=== PATIENT | female | born 1995 | race Two or more races ===

== ENCOUNTER 2023-07-01 08:10 | Outpatient (AMB) | payer OTHER, SELFPAY ==
--- NOTE | 2023-07-01 08:21 | MHC.OFFWIV ---
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 She reports having acrylic nails done a couple of days ago, and yesterday her thumb became reddened and tender to touch. No fever, chills, or drainage from area. [facility] Social History Patient Tobacco Use Status: Never used Tobacco Review of Systems Const All systems reviewed & are unremarkable except as noted in HPI and below Physical Exam Vital Signs: Last Vital Signs Temp 98.0 F 07/01/23 08:25 Pulse 76 07/01/23 08:25 BP 108/72 07/01/23 08:25 Pulse Ox 98 07/01/23 08:25 Const General: cooperative and no acute distress Resp Effort & Inspection: normal respiratory effort Skin General skin exam: no rashes or lesions noted Extrem Other: Nailbed of left thumb slightly erythematous and tender to touch. No excessive warmth. No drainable area. Acrylic nail intact. Psych Appearance: grossly normal Mental Status: mental status grossly normal Speech and movement: Normal speech and movement present Assessment & Plan Assessment & Plan (1) Infected nailbed of finger: Code(s): L03.019 - Cellulitis of unspecified finger Qualifiers: Laterality: left Qualified Code(s): L03.012 - Cellulitis of left finger Plan: Mild infection of nailbed of left thumb. I encouraged patient to remove acrylic nail - she will make appointment for this today. At this time there is no drainable abscess. We discussed conservative measures at this time, particularly once acrylic nail is removed, including soaking in epsom salt/warm water, and use of topical antibiotic ointment such as bacitracin. If symptoms do not resolve with conservative treatment, or if she develops any worsening symptoms such as increase pain, redness, warmth, swelling, drainage or fever/chills, she should return to the clinic for further evaluation. She agrees to plan. Work note provided. Coding Level of Care Code Est Pt Level 4 (83253) Diagnoses Infection of nail bed of finger of left hand L03.012 Laterality: left
[2023-07-01 08:25] VITALS: BP 108/72; PULSE 76; TEMP 36.7; O2SAT 98
== END 2023-07-01 08:58 | disposition home or self-care (01) ==
PROVIDERS: Visit Provider Nurse Practitioner Family
DX: L03.012 Cellulitis of left finger (principal)
CPT/HCPCS: 99214

== ENCOUNTER 2024-12-12 08:34 | Outpatient (AMB) | payer OTHER, SELFPAY ==
--- OUTSIDE RECORDS SUMMARY | 2024-12-12 08:48 | XMS_ITS | Clinical Summary ---
Author Organization [address] Building Address [address] [place] [phone] Phone Care Team Providers Care Snowboard Instructor Name Role Phone Ankur Rivera MD Primary Care Provider [phone] Allergies No known active allergies Medications No known medications Active Problems Problem Noted Date Diagnosed Date Ureteral stone 11/18/2023 Sprain of lumbosacral joint or ligament 07/11/19 Overview (11/18/2023): Last Assessment & Plan: 08/14/18 Chiropractor referral Seen 06/2018 Sprain of sacroiliac ligament 07/10/2018 Candiduria 02/23/2018 Encounters Date Type Department Care Team Description 11/15/2024 Telephone Obstetrics & Gynecology - [address] [id number] Pretty Sheppard CNM 09/26/2024 1:15 PM EDT Office Visit Obstetrics and Gynecology - [address] [phone] Pretty Sheppard CNM Chlamydia contact, treated (Primary Dx); H/O bilateral salpingectomy from Last 3 Months Immunizations Immunization Administration Dates Next Due HPV 9-valent (Gardisil) 9yo to less than 46yo Tdap Tetanus diptheria acell ular pertussis (Boostrix; Adacel) 7yo and older 07/12/2018 Surgical History Surgery Date Site/Laterality Comments OTHER SURGICAL HISTORY 04/1998 PROCEDURE: HISTORICAL CLEFT LIP/PALATE REPAIR OTHER SURGICAL HISTORY 2014 PROCEDURE: BONE REPLACEMENT GRAFT; COMMENT: r/t cleft lip/palate OTHER SURGICAL HISTORY 09/2017 PROCEDURE: ---- OTHER ----; COMMENT: pt states jaw surgery r/t cleft lip / palate OTHER SURGICAL HISTORY 03/2019 PROCEDURE: BONE REPLACEMENT GRAFT; COM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; COMMENT: had surgery at 4 months in [place]; at 18 yo had a bone graft; and top jaw surgery in 10/2017 Ureteral stone 10/19/2018 DX:Ureteral ston e Family History Medical History Relation Name Comments No Known Problems Brother No Known Problems Father No Known Problems Mother Breast cancer Neg Hx Ovarian cancer Neg Hx Relation Name Status Comments Brother Alive Father Alive Mother Alive Social History Tobacco Use Types Packs/Day Years Used Date Smoking Tobacco: Never Smokeless Tobacco: Never Tobacco Cessation:Counseling Given: Not Answered Alcohol Use Standard Drinks/Week Comments Not Currently 0 (1 standard drink = 0.6 oz pur e alcohol) rarely Housing Instability Answer Date Recorde d Are you worried that in the next 2 months you may not have stable housing? No 07/06/2024 Food Access & Nutrition Answer Date Rec orded Do you have access to a vari ety of food including fruits and vegetables? Yes 07/06/2024 Access to Healthcare Answer Date Record ed Within the last 3 months, yoly herndon many times did you visit the emergency department for your medical care? 0 07/06/2024 Health Literacy Answer Date Recorded How often do you need to hav e someone help you when you read instructions, pamphlets, or other written material from your doctor or pharmacy? Never 07/06/2024 Caregiver: How often do you need to have someone help you when you read instructions, pamphlets, or other written material from your doctor or pharmacy? Not on file 07/06/2024 Financial Risk Answer Date Recorded How hard is it for you to pa y for the very basics like food, housing, medical care, and air conditioning / heating? Not very hard 07/06/2024 Transportation Answer Date Recorded Has the lack of transportati on kept you from meetings, work, or from getting things needed for daily living? No Has the lack of transportati on kept you from medical appointments or from getting medications? No 07/06/2024 Social Isolation Answer Date Recorded How often do you feel lonely or isolated from th ose around you? Never 07/06/2024 Food Risk Answer Date Recorded Within the past 12 months we worried whether our food would run out before we got money to buy more. Never true 07/06/2024 Within the past 12 months th e food we bought just didn't last and we didn't have money to get more. Never true 07/06/2024 Dependent Care Answer Date Recorded Do you need help finding or paying for care for your loved ones. For example, child support specialist or elderly care for an older adult? No 07/06/2024 Education Answer Date Recorded Do you think completing more education or training, like finishing a GED, going to college, or learning a trade, would be helpful for you? N/A 07/06/2024 Employment and Income Answer Date Recor ded During the last four weeks, have you been actively looking for work? No 07/06/2024 Living Situation Answer Date Recorded What is your living situation? Unrecognized valu e 07/06/2024 Comments No Sex and Gender Information Value Date Recorded Sex Assigned at Not on file Legal Sex Female 6:51 PM EST Gender Identity Not on file Sexual Orientation Not on file Obstetrics History Para Term AB IAB SAB Ectopic Multiple Livin g Live Births 2 2 2 2 1 Date Outcome GA Total Labor Labor/2nd/3rd Weight Sex Type Anes PTL Denisse A1 A5 Name Clin 019 Term 40w 6d 3260 g (115 oz) F Vag-S pont Living 8 9 C. PEYTON Ahmadi Delivery Location:[facility] 022 Term 4281 g (151 oz) M Vag-S pont Delivery Location:[place] Last Filed Vital Signs Vital Sign Reading Time Taken Comments Blood Pressure 107/75 09/26/2024 12:53 PM EDT Pulse 56 09/26/2024 12:53 PM EDT Temperature - - Respiratory Rate 15 09/26/2024 12:53 PM EDT Oxygen Saturation - - Inhaled Oxygen Concentration - - Weight 90.1 kg (198 lb 9.6 oz) 09/26/2024 12:53 PM EDT Height 160 cm (5' 3 ) 12/29/2023 8:46 AM EST Body Mass Index 35.18 12/29/2023 8:46 AM EST Plan of Treatment Health Maintenance Due Date Last Done Comments Hepatitis B Vaccines (1 of 3 - 19+ 3-dose series) 2016 HPV Vaccines (2 - 3-dose series) 05/25/2019 04/27/2019 COVID-19 Vaccine ( - season) 2024 Influenza Vaccine (#1) 2024 04/17/2018 Social Influencers of Health Screening 07/06/2025 07/06/2024 Cervical Cancer Screening: Pap Smear 09/02/2025 09/02/2022, 09/02/2022, 09/01/2022, Additional history exists DTaP,Tdap,and Td Vaccines (2 - Td or Tdap) 07/12/2028 07/12/2018 RSV Immunization Adult Patients (1 - 1-dose 75+ series) 2072 Varicella Vaccines Aged Out 10/09/2018 No longer eligible based on patient's age to complete this topic HIV Screening Completed 12/30/2023, 09/02/2022 Hepatitis C Screening Completed 12/30/2023, 023 Depression Screening Completed 08/23/2024 Gonorrhea/Chlamydia Screening Discontinued 09/26/2024, 06/12/2024, 09/02/2022 HIB Vaccines Aged Out No longer eligi ble based on patient's age to complete this topic Hepatitis A Vaccines Aged Out No long er eligible based on patient's age to complete this topic IPV Vaccines Aged Out No longer eligi ble based on patient's age to complete this topic MMR Vaccines Aged Out No longer eligi ble based on patient's age to complete this topic Meningococcal ACWY Vaccine Aged Out N o longer eligible based on patient's age to complete this topic Meningococcal B Vaccine Aged Out No l onger eligible based on patient's age to complete this topic Pneumococcal Vaccine: Pediatrics (0 to 5 Years) and At-Risk Patients (6 to 49 Years) Aged Out No longer eligible based on patient's age to complete this topic RSV Immunization Patients Under 20 months Aged Out No longer eligible based on patient's age to complete this topic Procedures Procedure Name Priority Date/Time Associated Diagnosis Comments CHLAMYDIA TRACHOMATIS AND NEISSERIA GONORRHOEAE PCR Routine 09/26/2024 12:59 PM EDT Chlamydia contact, treated HEPATITIS C ANTIBODY Routine 12/30/2023 1:43 PM EST Screen for STD (sexually transmitted disease) HIV 1, 2 ANTIBODY, P24 ANTIGEN WITH REFLEX TO DIFFERENTIATION Routine 12/30/2023 1:43 PM EST Screen for STD (sexually transmitted disease) HM HPV Routine 09/02/2022 from Last 3 Months or Most Recently Relevant to Health Maintenance Results * Chlamydia trachomatis and Neisseria gonorrhoeae molecular study (09/26/2024 12:59 PM EDT) Pathologist [facility] Neisseria gonorrhoeae PCR Negative Negative LAB MOLECULAR DIAGNOSTICS METHOD 09/27/2024 10:09 AM EDT [facility] Chlamydia trachomatis PCR Negative Negative LAB MOLECULAR DIAGNOSTICS METHOD 09/27/2024 10:09 AM EDT [facility] Swab Cervix uteri structure / Unknown Non-blood Collection / Unknown 09/26/2024 12:59 PM EDT 09/26/2024 12:59 PM EDT Pretty Sheppard CNM LAB MICROBIOLOGY - GENERAL OR DERABLES Final Result [facility] [address] [place] [address], * Hepatitis C antibody (12/30/2023 1:43 PM EST) Pathologist [facility] Hepatitis C Antibody Negative Negative LAB CHEMISTRY METHOD 12/30/2023 5:04 PM EST [facility] Blood Venous blood specimen / Unknown Venipuncture / Unknown 12/30/2023 1:43 PM EST 12/30/2023 1:43 PM EST Huyen Rizvi [facility] BLOOD ORDERABLES Fi nal Result Performing Organization Address [facility]/ZIP Co de Phone Number [facility] [address] [place] [address], [place] [phone] * HIV 1,2 antibody, p24 antigen with reflex to differentiation (12/30/2023 1:43 PM EST) [facility] HIV Combo AB/AG Negative Negative LAB CHEMISTRY METHOD 12/30/2023 5:04 PM EST [facility] Blood Venous blood specimen / Unknown Venipuncture / Unknown 12/30/2023 1:43 PM EST 12/30/2023 1:43 PM EST Narrative [facility] - 12/30/2023 5:04 PM EST This assay is a 4th generation assay allowing for earlier detection of HIV infection by detecting the presence of the HIV-1 p24 antigen as well as the traditional antibodies to HIV type 1 (including group O) and type 2. Use of a 4th generation assay is the current CDC recommendation for HIV screening. Huyen Rizvi [facility] BLOOD ORDERABLES Fi nal Result Performing Organization Address [facility]/[employer] Co de Phone Number [facility] [address] [place] [address], [place] [phone] * Cervical Cancer Screening: HPV (09/02/2022) Health system Cervical Cancer Screening: HPV no interpretation , abstracted Historical Provider HEALTH MAINTENANCE Final Result from Last 3 Months or Most Recently Relevant to Health Maintenance Insurance [facility] Care Teams Snowboard Instructor Relationship Specialty Start Date End Date Ankur Rivera MD [address] [place] [phone] PCP - General Internal Medicine 05/25/18
--- OUTSIDE RECORDS SUMMARY | 2024-12-12 08:48 | XMS_ITS | Clinical Summary ---
Author Organization [facility] Address [address] [place] [address] Phone Care Team Providers Care Wafer Slicer Name Role Phone Ankur Rivera Unavailable [phone] Ankur Rivera Primary Care Provider [phone] Ankur Rivera Unavailable [phone] Social History Tobacco Use Types Packs/Day Years Used Date Smoking Tobacco: Never Assessed Comments Unknown Sex and Gender Information Value Date Recorded Sex Assigned at Not on file Legal Sex Female 9:54 PM EDT Gender Identity Not on file Sexual Orientation Not on file Last Filed Vital Signs Vital Sign Reading Time Taken Comments Blood Pressure - - Pulse - - Temperature - - Respiratory Rate - - Oxygen Saturation - - Inhaled Oxygen Concentration - - Weight 72.9 kg (160 lb 11.5 oz) 020 10:12 AM EDT Height 161 cm (5' 3.39 ) 06/13/2019 10: 12 AM EDT Body Mass Index 28.12 06/13/2019 10:12 AM EDT Plan of Treatment Not on file Care Teams Wafer Slicer Relationship Specialty Start Date End Date Ankur Rivera [address] [place] [address] PCP - Insurance PCP 11/08/17 Ankur Rivera [address] [place] [address] PCP - General 04/23/18 Ankur Rivera [facility] [address] [address] PCP - Clinical PCP 05/03/18
--- NOTE | 2024-12-12 12:34 | A.OFFVIS_ITS ---
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: Details: Start time: 12.31pm, End time: 1.01pm ?I spent 25 minutes speaking with the patient on the phone plus an additional 5 minutes reviewing and updating records for a total of 30 minutes HPI Comments Details: Previous weight loss efforts: self diet and exercise Wakes up: 7am, Sleeps: 11pm Breakfast: 8am (Bagel or home breakfast) Lunch: 1-2pm (Sub sandwich) Dinner: 8-9pm (mom makes Snacks: can't recall Exercise: none Beverages: Coffee (1 cup/d with cream and sugar), Tea: none, Soda: Pepsi or Regular Coke (1 cup) x4/wk, Juice: (Grape juice, orange, danyel: 2-3/d), ETOH: 1/wk PFSH Medical History (Updated 12/12/24 @ 13:02 by Tulio Izaguirre MD) Back pain BMI 35.0-35.9,adult Obesity Surgical History (Updated 11/05/24 @ 10:12 by Miri Hamilton CMA) History of nasal surgery Hx of bone graft History of mandibular surgery Family History (Updated 11/05/24 @ 10:13 by Miri Hamilton CMA) Mother No problems noted. Father No problems noted. Social History Patient Tobacco Use Status: Never used Tobacco Telehealth Telehealth Telehealth Platform: Telephone Location of provider rendering services: practice address Location of patient: address on file Patient Identification confirmed using: Name, : Yes Telehealth method: voice only Patient verbally consented to treatment: Yes Patient verbally consented to billing insurance company: Yes Patient informed of any privacy concerns related to visit: Yes Minutes spent on Phone/Video with Pt.: 30 Assessment & Plan Assessment & Plan (1) Obesity: Code(s): E66.9 - Obesity, unspecified Category: Medical Qualifiers: Obesity type: due to excess calories Obesity classification: adult class 2 (BMI 35 - 39.9) Serious obesity comorbidity presence: without serious comorbidity Body mass index: BMI 35.0-35.9 Qualified Code(s): E66.09 - Other obesity due to excess calories; Z68.35 - Body mass index [BMI] 35.0-35.9, adult Plan: 1. As we discussed, based on your present BMI you are approximately 65lbs overweight. In my opinion, for any weight loss strategy to be successful it should have a high probability to help you lose at least 60lbs out of 65lbs of the extra weight you carry. We discussed in detail the available therapeutic options: 1) our lifestyle intervention program that has an average weight loss of 10% in 3 months.?Some patients continue it for longer and have lost over 50lbs but this is not common. Our lifestyle program can be provided by me. I will provide you with a link to use the jonah if you choose to do so. We use protein shakes and protein bars to replace some of the meals of the day and cover your appetite better. We will decide together the exact combination. 2) Weight loss medications: these can be used in conjunction with our lifestyle program or you may choose to use them without following a lifestyle program from my program but your own. As we discussed, your insurance only the Phentermine pill. It is well tolerated and most common side effects include blood pressure elevation, dry mouth, difficulty sleeping and heart palpitations. We also discussed that you can self pay for the weight loss injections and the cost is $249 for the first month and $499 for any other month thereafter. These payments go to the drug company directly and not to us. As we discussed, this is not a adjunct faculty for medical terminology solution, as most patients put all the weight back once they are off the medication. 3) We also discussed about the lap sleeve gastrectomy. In my opinion this is the best option to solve your problem based on your situation and should be used in conjunction with the two previous options. A good strategy to make this decision to proceed with surgery, as soon as you achieve a specific goal with the lifestyle intervention and medication options: to lose least 10% of your initial weight in 3 months. ?I emphasized the importance of close follow-up, adherence to instructions and good communication. The surgery does not replace the need to change your lifestlyle which is the cause of the obesity problem. The surgery provides the motivation to try again to change your lifestyle, it reduces the appetite and make the transition to a better lifestyle easier and doubles the amount of weight you would lose compared to doing the lifestyle change without the surgery. You will need to be on a liquid diet with protein shakes for 2 weeks before surgery to maximize weight loss and boost your nutritional status to recover better from surgery and also for the first two weeks after surgery to let the stomach heal before we introduce other foods. After the first 2 weeks we will introduce protein bars and soft foods like scrambled eggs, cottage cheese and yogurt and after the 6th week will introduce meat, fish and cooked vegetables in small amounts. Over time you should be able to eat everything in small amounts. Side effects like nausea, vomiting, heartburn or abdominal pain are not common in the practice unless you are not following in the practice. This operation requires lifetime commitment to following in our practice and communication with me. You will much less weight and experience side effects if you don?t communicate or not following in the practice. Complications are rare and in our practice is about 1/10 of the national average.
[2024-12-12 12:45] VITALS: BMI 35.6
== END 2024-12-12 13:01 | disposition home or self-care (01) ==
LOC: HO.HBS 08:34
PROVIDERS: Visit Provider Surgery
DX: E66.09 Other obesity due to excess calories (principal); Z68.35 Body mass index [BMI] 35.0-35.9, adult
CPT/HCPCS: 99203

== ENCOUNTER 2025-01-15 10:39 | Outpatient (AMB) | payer OTHER, SELFPAY ==
--- NOTE | 2025-01-15 10:45 | MHC.PC.OV ---
Vital Signs 01/15/25 10:51 Height 5 ft 3 in Weight 90.775 kg BMI 35.4 BP 106/66 Respiration 14 Pulse 83 Pulse Source Pulse Oximeter Temp 97.9 F Temp Source Temporal Artery Scan Pulse Oximetry (%) 97 Oxygen Delivery Method Room Air Intake Visit Reasons: physical Head Of Human Resources Required: No Accompanied by: Self / Same As Patient Allergies No Known Allergies Allergy (Verified 01/15/25 10:45) Medication List - Last Reconciled 01/15/25 by NIRMALA Condon nicotine (polacrilex) (Nicorette) 2 mg buccal Q2H Tobacco use date assessed: 01/15/25 Dental Screening Dental Screen Date: 01/15/25 Did you have a dental visit in the last 12 months?: Yes Did you have a dental problem in the last 6 months where you did not have access to dental care?: No Was dental information given to patient?: Patient has dentist HPI HPI Comments History of Present Illness Details 29-year-old female with history of class 2 obesity, chronic low back pain presenting to the office today for annual physical exam and to establish care. Has been seen in many years by provider. She currently lives at home with her 2 children, her son age 3 and daughter age 6. 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 Interested in more schooling down the road. Alcohol use socially, shots or mixed drinks 2-3 at most. No history of cigarettes, vaping nicotine. No illicit drug use Obesity-BMI 35.5. Following with weight management. Doing meal plans. Offered PO and subcut meds but would like to continue with meal plans for now. Exercising is difficult due to children but would like to start again. Vaping-reports vaping nicotine about 4 times daily. Interested in quitting Chronic low back pain, chronic thoracic back pain-ongoing for several years. She does not have ergonomic positioning at work as she is often leaning over patient's. She also feels that the size of her breasts is also affecting her pain. Reports she breastfed her son until age 3. Interested in breast reduction Concerns: None Health Maintenance: Pap Smear up to date Mammo age 42 Colonscopy age 47 No eye exam at this time Dental exams up to date Wears sunscreen No vaccines- buddhism reasons PHQ-9 score 2, adrianna 7 score 0 Reviewed past medical, social, surgical history PFSH Medical History Low back pain Cleft lip Back pain BMI 35.0-35.9,adult Obesity Surgical History Status post bilateral salpingectomy H/O jaw surgery S/P scar revision History of nasal surgery Hx of bone graft History of mandibular surgery Family History Mother No problems noted. Father No problems noted. 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 Cognitive needs: No Hearing needs: No Vision needs: No Questionnaire PHQ-9 Over the last 2 weeks, how often have you been bothered by any of the following problems? 1. Little interest or pleasure in doing things: not at all 2. Feeling down, depressed, or hopeless: not at all 3. Trouble falling or staying asleep, or sleeping too much: not at all 4. Feeling tired or having little energy: several days 5. Poor appetite or overeating: several days 6. Feeling bad about yourself - or that you are a failure or have let yourself or your family down: not at all 7. Trouble concentrating on things, such as reading the newspaper or watching television: not at all 8. Moving or speaking so slowly that other people could have noticed. Or the opposite - being so fidgety or restless that you have been moving around a lot more than usual: not at all 9. Thoughts that you would be better off or of hurting yourself in some way: not at all Total score: 2 Depression Screening Interpretation: Negative Depression Screening Done: Yes 35210 - PHQ-9 Billing: Yes Source: Developed by Drs. Rainer Wallace, Bonny Jim, Leonard Marquez and colleagues, with an educational kimmy from [employer]. ADRIANNA-7 AMB Questionnaire ADRIANNA-7 Feeling nervous, anxious, or on edge: 0 = Not at all Not being able to stop or control worryin = Not at all Worrying too much about different things: 0 = Not at all Trouble relaxin = Not at all Being so restless that it is hard to sit still: 0 = Not at all Becoming easily annoyed or irritable: 0 = Not at all Feeling afraid as if something awful might happen: 0 = Not at all Total ADRIANNA-7 score (0-4 normal; 5-9 mild; 10-14 moderate; 15-21 severe): 0 Source: Developed by Drs. Rainer Wallace, Bonny Jim, Leonard Marquez and colleagues, with an educational kimmy from [employer]. ADRIANNA-7 Assessment Billing ADRIANNA-7 Assessment Tool: ADRIANNA-7 Assessment 92770 Physical exam (Primary Care) Vital Signs: Last Vital Signs Temp 97.9 F 01/15/25 10:51 Pulse 83 01/15/25 10:51 Resp 14 01/15/25 10:51 BP 106/66 01/15/25 10:51 Pulse Ox 97 01/15/25 10:51 Oxygen Delivery Method Room Air 01/15/25 10:51 BMI result Body Mass Index 35.4 Tobacco/Smoking Status: Tobacco use Status Tobacco use date assessed 01/15/25 01/15/25 10:56 Patient Tobacco Use Status Never used Tobacco 01/15/25 10:47 e-Cigarette/Vaping Use Currently Using (Vape) 01/15/25 10:56 Depression Screening Interpretation: Negative Coding Level of Care Code Est Pt Level 3 (65560) New Pt Prev Care 18-39yr(35123 Diagnoses Routine medical exam Z00.00 Class 2 obesity due to excess calories without serious comorbidity with body mass index (BMI) of 35.0 to 35.9 in adult E66.09; Z68.35 Body mass index: BMI 35.0-35.9 Obesity classification: adult class 2 (BMI 35 - 39.9) Obesity type: due to excess calories Serious obesity comorbidity presence: without serious comorbidity Low back pain M54.50 Thoracic back pain M54.6 Macromastia N62 Additional Codes PHQ-9 - 01154 - PHQ-9 Billing: Yes ([id number]) ADRIANNA-7 Assessment Billing - ADRIANNA-7 Assessment Tool: ADRIANNA-7 Assessment [id number] ([id number]) Assessment & Plan Assessment & Plan (1) Routine medical exam: Code(s): Z00.00 - Encounter for general adult medical examination without abnormal findings Category: Medical Plan: 29-year-old female presenting for annual physical exam and to establish care. Plan as below (2) Obesity: Code(s): E66.9 - Obesity, unspecified Category: Medical Qualifiers: Body mass index: BMI 35.0-35.9 Obesity classification: adult class 2 (BMI 35 - 39.9) Obesity type: due to excess calories Serious obesity comorbidity presence: without serious comorbidity Qualified Code(s): E66.09 - Other obesity due to excess calories; Z68.35 - Body mass index [BMI] 35.0-35.9, adult Plan: Commended on weight loss efforts thus far. Continue following with weight management. Continue following on meal plans at set forward by weight management. Recommend exercise for at least 150 minutes weekly of brisk exercise. (3) Low back pain: Code(s): M54.50 - Low back pain, unspecified Category: Medical Plan: X-ray of the lumbar spine ordered. Etiology likely multifactorial from poor ergonomic positioning as well as macromastia. Referred to physical therapy. Discussed recommended ergonomic positioning (4) Thoracic back pain: Code(s): M54.6 - Pain in thoracic spine Category: Medical Plan: Etiology likely multifactorial from poor ergonomic positioning as well as macromastia. Referred to physical therapy. Discussed recommended ergonomic positioning. X-ray of the thoracic spine ordered (5) Macromastia: Code(s): N62 - Hypertrophy of breast Category: Medical Plan: Interested in reduction. Plan as above Plan Routine screening labs as ordered below Continue with screening papsmears and regular insurance sales producer visits Continue following for annual skin exams and use sun protection Annual eye exams Wear seat belt in car Recommend regular exercise and healthy diet Follow up in 1 year for annual exam Orders: Orders Lipid Panel Today Z00.00 - Encounter for general adult medical examination without abnormal findings Liver Panel Today Z00.00 - Encounter for general adult medical examination without abnormal findings Vitamin D 25-OH Total Today Z00.00 - Encounter for general adult medical examination without abnormal findings PT Evaluation and Treatment Today M54.50 - Low back pain, unspecified, M54.6 - Pain in thoracic spine, N62 - Hypertrophy of breast XR lumbar spine 2-3V Today E66.09 - Other obesity due to excess calories, M54.50 - Low back pain, unspecified, M54.6 - Pain in thoracic spine, N62 - Hypertrophy of breast, Z00.00 - Encounter for general adult medical examination without abnormal findings, Z68.35 - Body mass index [BMI] 35.0-35.9, adult XR thoracic spine 2V Today E66.09 - Other obesity due to excess calories, M54.50 - Low back pain, unspecified, M54.6 - Pain in thoracic spine, N62 - Hypertrophy of breast, Z00.00 - Encounter for general adult medical examination without abnormal findings, Z68.35 - Body mass index [BMI] 35.0-35.9, adult Basic Metabolic Panel Today Z00.00 - Encounter for general adult medical examination without abnormal findings Complete Blood Count Auto Diff Today Z00.00 - Encounter for general adult medical examination without abnormal findings Hemoglobin A1c Today Z00.00 - Encounter for general adult medical examination without abnormal findings TSH reflex Free T4 Today Z00.00 - Encounter for general adult medical examination without abnormal findings IRON PROFILE Today Z00.00 - Encounter for general adult medical examination without abnormal findings Medications: New nicotine (polacrilex) (Nicorette) 2 mg buccal Q2H 50 ea 1RF
[2025-01-15 10:51] VITALS: BP 106/66; PULSE 83; RESP 14; TEMP 36.6; O2SAT 97; BMI 35.4
== END 2025-01-15 11:29 | disposition home or self-care (01) ==
LOC: HO.HMCHD 10:40
PROVIDERS: Visit Provider Physician Assistant
DX: Z00.00 Encounter for general adult medical examination without abnormal findings (principal); M54.6 Pain in thoracic spine; M54.50 Low back pain, unspecified; E66.09 Other obesity due to excess calories; Z68.35 Body mass index [BMI] 35.0-35.9, adult; N62 Hypertrophy of breast

== ENCOUNTER 2025-01-15 10:39 | Outpatient (REF) | payer OTHER, SELFPAY ==
--- NOTE | ~2025-01-15 | XR_ITS ---
EXAMINATION: XR LUMBAR SPINE 2-3 VIEWS HISTORY: M54.50 - Low back pain, unspecified COMPARISON: There are no prior studies for comparison. FINDINGS: AP, lateral, and coned down views of the lumbar spine are submitted. Osseous mineralization is normal. Five nonrib-bearing lumbar vertebral bodies are identified, maintaining normal height and alignment without evidence of fracture or spondylolisthesis. The intervertebral disc spaces are preserved. The posterior elements are intact. The visualized paraspinal soft tissues are unremarkable. XR/XR lumbar spine 2-3V IMPRESSION: Unremarkable examination of the lumbar spine. Electronically signed by: Rainer Mckeon MD 01/15/2025 12:15 PM [facility]
--- NOTE | ~2025-01-15 | XR_ITS ---
EXAMINATION: XR THORACIC SPINE CLINICAL INFORMATION: M54.50 - Low back pain, unspecified COMPARISON: None available. TECHNIQUE: 3 views of the thoracic spine were obtained. FINDINGS: There is trace levoconvex scoliosis, possibly positional. There is no fracture or bone destruction seen and the vertebral alignment is normal. There is no disc space narrowing. There is no abnormality of the paraspinal soft tissues. XR/XR thoracic spine 2V IMPRESSION: Essentially normal thoracic spine radiographs. Electronically signed by: Steve Bacon MD 01/15/2025 12:15 PM [facility]
== END 2025-01-15 10:40 | disposition home or self-care (01) ==
LOC: HO.XRAY 10:39
PROVIDERS: Visit Provider Physician Assistant
DX: Z00.00 Encounter for general adult medical examination without abnormal findings (principal); M54.6 Pain in thoracic spine; E66.09 Other obesity due to excess calories; M54.50 Low back pain, unspecified; N62 Hypertrophy of breast; Z68.35 Body mass index [BMI] 35.0-35.9, adult
CPT/HCPCS: 72070; 72100; 96127; 99212; 99395

== ENCOUNTER 2025-01-15 11:38 | Outpatient (REF) | payer OTHER, SELFPAY ==
[2025-01-15 13:03] LABS: MANUAL DIFF FLAG NO
[2025-01-15 13:09] LABS: Hematocrit 41.9 % (37.0-47.0); Hemoglobin 13.7 g/dl (12.0-16.0); Imm Gran Abs Auto 0.02 X10*3/uL (0.00-0.03); Imm Gran Pct Auto 0.2 % (0.0-0.4); Lymphocytes Absolute Auto 2.3 X10*3/uL (1.2-4.9); Mean Corpuscular HGB Conc 32.7 g/dl (31.0-35.0); Mean Corpuscular Hemoglobin 29.3 pg (27.0-33.0); Mean Corpuscular Volume 89.7 fL (80.0-98.0); NRBC Abs Auto 0.000 X10*3/uL (0.0-0.012); NRBC Pct Auto 0.0 /100WBC (0.0-0.2); Platelet Count 252 X10*3/uL (160-400); Red Blood Count 4.67 X10*6/uL (4.20-5.50); White Blood Count 9.3 X10*3/uL (4.8-10.8)
[2025-01-15 13:37] LABS: Alanine Aminotransferase 54 U/L (0-31); Albumin Level 4.3 g/dL (3.5-5.0); Alkaline Phosphatase 35 U/L (39-117); Anion Gap 8 (12-20); Aspartate Amino Transferase 42 U/L (5-31); Blood Urea Nitrogen 9 mg/dL (9-16); Calcium 8.7 mg/dL (8.4-10.2); Carbon Dioxide 28 mmol/L (22-29); Chloride 107 mmol/L (96-108); Cholesterol 174 mg/dL (<200); Estimated Glomerular Filt Rate > 60; HDL Cholesterol 47 mg/dL (>40); Iron 112 mcg/dL (30-160); Percent Iron Saturation 32 % (15-50); Potassium 4.2 mmol/L (3.3-5.1); Sodium 139 mmol/L (135-145); Total Iron Binding Capacity 353 mcg/dL (228-428); Total Protein 7.0 g/dL (6.5-8.0); Triglycerides 118 mg/dL (<150); Unsaturated Iron Binding 241 ug/dL
== END 2025-01-15 11:39 | disposition home or self-care (01) ==
LOC: HO.10HDL 11:38
PROVIDERS: Visit Provider Physician Assistant
DX: Z00.00 Encounter for general adult medical examination without abnormal findings (principal)
CPT/HCPCS: 36415; 80048; 80061; 80076; 82306; 83036; 83540; 84443; 85025

== ENCOUNTER → 2025-01-15 11:53 | Outpatient (BNV) | payer OTHER, SELFPAY | PROVIDERS: Visit Provider Radiology Diagnostic Radiology | DX: M54.50 Low back pain, unspecified (principal); M54.6 Pain in thoracic spine | CPT/HCPCS: 72070; 72100 ==